=== PATIENT | female | born 1935 | race Caucasian/White ===

== ENCOUNTER 2018-07-06 09:49 | Day surgery (SDC) | payer BC ==
[2018-07-06] MEDS ORDERED: PROPOFOL 20 ML (10:46)
== END 2018-07-06 12:31 | disposition home or self-care (01) ==
LOC: GIL 09:49
DX: Z12.11 Encounter for screening for malignant neoplasm of colon (principal); K29.50 Unspecified chronic gastritis without bleeding; K57.30 Diverticulosis of large intestine without perforation or abscess without bleeding
CPT/HCPCS: 43239; 88305; 88312